=== PATIENT | female | born 1950 | race Caucasian/White ===

== ENCOUNTER 2025-04-24 12:40 | Emergency (ER) | payer MEDICARE, OTHER ==
[2025-04-24 13:25] LABS: APPEARANCE,URINE SLIGHTLY CLOUDY (CLEAR); GLUCOSE,URINE NEGATIVE (NEGATIVE); OCCULT BLOOD,URINE NEGATIVE (NEGATIVE)
[2025-04-24 13:31] LABS: UROTHELIAL CELLS,URINE NOT SEEN /HPF
[2025-04-24 13:32] LABS: SQUAMOUS EPITHELIAL CELLS,UR MODERATE /HPF
== END 2025-04-24 14:08 | disposition home or self-care (01) ==
LOC: JP.ED 12:40
DX: N30.00 Acute cystitis without hematuria (principal); I10 Essential (primary) hypertension; E78.00 Pure hypercholesterolemia, unspecified; E03.9 Hypothyroidism, unspecified; Z90.710 Acquired absence of both cervix and uterus; Z79.899 Other long term (current) drug therapy; Z88.8 Allergy status to other drugs, medicaments and biological substances; Z88.2 Allergy status to sulfonamides
CPT/HCPCS: 81001; 87086; 99283